=== PATIENT | female | born 1980 ===

== ENCOUNTER 2017-08-25 10:32 | Outpatient (CLI) | payer OTHER ==
[~2017-08-25 10:32] MED LIST: FOLIC ACID0.4 MG; PROTONIX40 MG; ZOFRAN8 MG; ZYRTEC10 MG
[2017-08-26] MEDS ORDERED: PRILOSEC10 MG (15:51)
[2017-08-26] MEDS ORDERED: ZANTAC300 MG (15:51)
== END 2017-08-25 10:43 | disposition home or self-care (01) ==
LOC: SONOGRAMA 10:32
DX: R10.9 Unspecified abdominal pain (principal)

== ENCOUNTER → 2017-08-26 | Emergency (ER) | payer OTHER ==
[~2017-08-26] VITALS: Ht 152.4 cm; Wt 72.6 kg
[~2017-08-26] MED LIST changes: +PRILOSEC10 MG; +ZANTAC300 MG
== END | disposition home or self-care (01) ==
LOC: ER 15:00
DX: K52.9 Noninfective gastroenteritis and colitis, unspecified (principal)